=== PATIENT | male | born 1985 | race Two or more races ===

== ENCOUNTER 2023-12-05 20:35 | Emergency (ER) | payer OTHER ==
[~2023-12-05] VITALS: Ht 170.2 cm; Wt 98.4 kg
[2023-12-05 21:20] VITALS: BP 117/79; PULSE 85; RESP 15; TEMP 98.4
[2023-12-05] MEDS ORDERED: IBUP-1455 PO (23:23)
[2023-12-05] MEDS: IBUPROFEN 800 MG TAB PO ONE (23:59)
[2023-12-06 00:05] VITALS: O2SAT 97
== END 2023-12-06 00:15 | disposition home or self-care (01) ==
LOC: ER 20:35
DX: M25.561 Pain in right knee (principal); X58.XXXA Exposure to other specified factors, initial encounter; Y93.01 Activity, walking, marching and hiking; Y92.59 Other trade areas as the place of occurrence of the external cause; Y99.8 Other external cause status
CPT/HCPCS: 29505; 73562